=== PATIENT | male | born 1995 | race Caucasian/White ===

== ENCOUNTER 2019-01-06 07:46 | Emergency (ER) | payer OTHER, BC ==
[2019-01-06 07:53] VITALS: BP 140/82
--- NOTE | 2019-01-06 07:56 | ER Report ---
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 This injury occurred just prior to arrival. Patient is unsure of his last tetanus status. Patient complains of pain to the incision site but no other complaints. There is some mild oozing from the incision site. No other injuries were complained about or identified. Allergies: Coded Allergies: No Known Allergies (Verified Allergy, Unknown, 01/06/19) Home Meds Reported Medications Cetirizine Hcl (ZYRTEC) 10 Mg Tablet, 10 MG PO QDAY, TAB 01/06/19 Omeprazole (OMEPRAZOLE) 40 Mg Capsule.dr, 40 MG PO QDAY 01/06/19 Mometasone/Formoterol (DULERA 100 MCG/5 MCG INHALER) 13 Gm Inh, 13 GM IN BID 01/06/19 Past Medical/Surgical History Noncontributory towards his chief complaint Constitutional Vital Sign - Last 24 Hours 01/06/19 07:53 Temp 98.7 Pulse 67 Resp 14 B/P (MAP) 140/82 Pulse Ox 94 O2 Delivery Room Air Physical Exam General appearance: Alert no distress. Respiratory: Chest is non tender, lungs are clear to auscultation. Cardiac: Regular rate and rhythm Abdomen: There is a 1.5 cm horizontal laceration to the left lower quadrant abdominal wall. The wound was given local anesthesia with 0.5% prilocaine with epinephrine and explored with a sterile glove the wound does not penetrate the peritoneum and is superficial and will require primary repair. Medical Decision Making ED Course/Re-evaluation ED Course 01/06/2019 7:56:07 am Procedure: Laceration repair. Verbal consent was obtained from the patient. The 1.5cm laceration on the LLQ of the abdominal wall was anesthetized in the usual fashion. The wound was cleansed, draped and explored to its base with a gloved finger. There were no deep structures involved. The wound did not penetrate the peritoneum. The wound was repaired with 4 single interrupted 4-0 nylon sutures. The wound repair was simple. The procedure was performed by myself. Decision to Disposition Date: Jan 06, 2019 Decision to Disposition Time: 08:10 Depart Departure Latest Vital Signs Vital Signs Date Time Temp Pulse Resp B/P (MAP) Pulse Ox O2 Delivery O2 Flow Rate FiO2 01/06/19 07:53 98.7 67 14 140/82 94 Room Air Impression: Primary Impression: Laceration Condition: Improved Disposition: HOME OR SELF-CARE Departure Forms: ER Transition Record, Medications Reconciliation, Off Work/School Form, School or Work Release?: Work Number of days to be released: 1 Patient Portal Information Patient Instructions: Laceration (ED) Additional Instructions: Present to your family care provider or return to the emergency department in 7- 10 days for suture removal WILFREDO SURESH MD Jan 06, 2019 07:56
[2019-01-06] MEDS ORDERED: CETI-176 PO (07:58)
[2019-01-06] MEDS ORDERED: OMEP40CA48 PO (07:58)
[2019-01-06] MEDS ORDERED: DUL100/5PT IN (07:58)
[2019-01-06] MEDS ORDERED: DIPHTH/TETANUS/ACEL. PERTUSSIS IM ONLY ONE (08:10)
== END 2019-01-06 08:26 | disposition home or self-care (01) ==
LOC: ER 07:50
DX: S31.114A Laceration without foreign body of abdominal wall, left lower quadrant without penetration into peritoneal cavity, initial encounter (principal)
CPT/HCPCS: 90471; 90715; 99283

== ENCOUNTER 2019-03-07 14:43 | Outpatient (RCR) | payer BC, OTHER ==
[~2019-03-07 14:43] MED LIST: CETI-176 PO; DUL100/5PT IN; OMEP40CA48 PO
[2019-03-07 15:25] VITALS: BP 121/70
--- NOTE | 2019-03-14 16:05 | ONCOLOGY CONSULTATION ---
EVENT DATE: March 07, 2019 REFERRING PROVIDER [facility] REASON FOR CONSULTATION Factor V Leiden heterozygosity. CHIEF COMPLAINT Fatigue. HISTORY OF PRESENT ILLNESS Sang is a very pleasant 23-year-old gentleman with a history of asthma and seasonal allergies, who presents for recently diagnosed factor V Leiden heterozygosity. The patient reports that his mother also has a history of factor V Leiden mutation. Sang reports significant ongoing fatigue which has been present for quite some time. He reports that he will be having a sleep study soon. He denies fever. His appetite has been pretty good. He reports no significant pain. He has had no notable weight loss. He has had no recent changes in bowel or bladder habits. He denies shortness of breath, chest pain, productive cough, and palpitations. He has questions about his recently diagnosed factor V Leiden mutation. He reports no personal history of thrombosis. REVIEW OF SYSTEMS Otherwise negative, and all systems were reviewed. PAST MEDICAL HISTORY 1. Asthma. 2. Seasonal allergies. 3. Factor V Leiden heterozygosity, diagnosed November 2018. MEDICATION LIST 1. Xyzal. 2. Flonase. 3. Brynn. 4. Omeprazole. 5. Symbicort. 6. Zyrtec. 7. Ventolin. 8. Flovent. 9. Singulair. ALLERGIES No known drug allergies. SOCIAL HISTORY The patient is a nonsmoker. He drinks about one beer per day on average. There is no history of illicit drug use. He is . FAMILY HISTORY Pertinent for factor V Leiden mutation, reportedly in his mother. VITAL SIGNS Temperature: Patient is afebrile. Blood pressure 136/86. Heart rate is 76. Respirations are 18. Oxygen saturation is 97% on room air. PHYSICAL EXAMINATION GENERAL: Patient is alert and oriented times three, no apparent distress, sitting in the exam room chair. He appears tired, but nontoxic. He is interactive and pleasant. HEENT: Anicteric sclerae. NEUROLOGIC: Grossly nonfocal, and his gait is normal. SKIN: Cursory skin exam reveals no concerning rash or lesion. EXTREMITIES: No edema, clubbing, or cyanosis. There is no erythema. LABORATORY STUDIES Lab report from [facility] on November 19, 2018, reveals heterozygosity for the factor V Leiden mutation. IMAGING None today. ASSESSMENT AND PLAN Factor V Leiden heterozygosity. I had a good visit with Sang today. Symptomatically, he continues to deal with rather significant fatigue. He will be undergoing a sleep study soon to evaluate this further. We spent time today discussing the pertinence of his recent factor V Leiden mutation testing. He has been found to be a heterozygote for this mutation. We discussed that this will increase his risk of thrombosis. He does not have any symptoms at this point to suggest deep venous thrombosis or pulmonary embolism, however. Again, he does not have a personal remote history of thrombosis. As discussed, I would not recommend that he begin any type of treatment for this mutation given lack of thrombosis history. We discussed ways to protect himself from thrombosis. These include remaining active, continuing not to smoke, and making sure that medical providers understand the presence of this mutation prior to any surgeries or procedures. We otherwise spent time discussing reversible and irreversible risk factors for the thrombosis. I have not recommended that the patient have regular followup with Hematology until thrombosis becomes a problem in the future. We discussed that the presence of the factor V Leiden mutation would not necessarily dictate the need for indefinite anticoagulation should he be diagnosed with a clot. The patient had several additional questions for me today, and I believe I answered all of his questions to his satisfaction. Followup here will be as needed. I spent a total of 30 minutes of time face to face with the patient today, and 25 minutes of this was spent in direct counseling and coordination of care. EZE
== END 2019-04-15 15:26 | disposition home or self-care (01) ==
LOC: ONC 14:43
PROVIDERS: ATTEND Internal Medicine Medical Oncology
DX: D68.51 Activated protein C resistance (principal); R53.83 Other fatigue
CPT/HCPCS: 99203